=== PATIENT | male | born 2000 | race Two or more races ===

== ENCOUNTER 2022-10-08 09:40 | Emergency (ER) | payer OTHER ==
[~2022-10-08] VITALS: Ht 170.2 cm; Wt 120.2 kg
[2022-10-08] MEDS ORDERED: DICLOFENAC SODI75 MG PO (10:28)
== END 2022-10-08 11:24 | disposition home or self-care (01) ==
LOC: ER 09:40
DX: M72.2 Plantar fascial fibromatosis (principal)